=== PATIENT | female | born 1955 | race Caucasian/White ===

== ENCOUNTER → 2016-05-28 | Outpatient (CLI) | payer OTHER, BC ==
[2016-05-28 14:58] LABS: BILIRUBIN,TOTAL 0.4 mg/dL (0.3-1.2); LDL CHOLESTEROL,CALCULATED 42.2 mg/dL; TOTAL PROTEIN 6.5 g/dL (6.1-8.0)
== END ==
LOC: LAB 08:18
PROVIDERS: ATTEND Physician Assistant Medical
DX: E78.00 Pure hypercholesterolemia, unspecified (principal)
CPT/HCPCS: 80061; 80076

== ENCOUNTER → 2016-09-03 | Outpatient (CLI) | payer OTHER, BC ==
[2016-09-03 14:54] LABS: BLOOD UREA NITROGEN 14 mg/dL (7-22); CALCIUM 9.7 mg/dL (8.7-10.7); EST GLOMERULAR FILTRATION > 60 (>60 ml/min/1.73m(2))
[2016-09-03 15:22] LABS: CHOL/HDL RATIO 4.32 RATIO (0-4.0); LDL CHOLESTEROL,CALCULATED 77.4 mg/dL
[2016-09-03 15:56] LABS: CREATININE, URINE 103.4 MG/DL (15-500)
== END ==
LOC: LAB 08:57
PROVIDERS: ATTEND Physician Assistant Medical
DX: E11.9 Type 2 diabetes mellitus without complications (principal); Z79.4 Long term (current) use of insulin
CPT/HCPCS: 80048; 80061; 82043